=== PATIENT | male | born 1980 | race African-American/Black ===

== ENCOUNTER 2020-02-25 09:34 | Emergency (ER) | payer BC ==
[~2020-02-25] VITALS: Ht 182.9 cm; Wt 99.3 kg
[2020-02-25 09:40] VITALS: Ht 182.9 cm; Wt 99.3 kg
[2020-02-25 11:26] VITALS: BP 108/79
== END 2020-02-25 12:21 | disposition home or self-care (01) ==
LOC: ED 09:34
DX: N49.2 Inflammatory disorders of scrotum (principal); F17.210 Nicotine dependence, cigarettes, uncomplicated; Z88.1 Allergy status to other antibiotic agents
CPT/HCPCS: J1885; J2001

== ENCOUNTER 2020-03-12 07:17 | Emergency (ER) | payer BC ==
[~2020-03-12] VITALS: Ht 182.9 cm; Wt 98.9 kg
[2020-03-12 07:28] VITALS: Ht 182.9 cm; Wt 98.9 kg
[2020-03-12 14:49] VITALS: BP 120/90
== END 2020-03-12 14:49 | disposition home or self-care (01) ==
LOC: ED 07:17
DX: L02.214 Cutaneous abscess of groin (principal); Z88.2 Allergy status to sulfonamides; Z88.1 Allergy status to other antibiotic agents
CPT/HCPCS: J2001

== ENCOUNTER 2020-04-18 18:01 | Emergency (ER) | payer BC ==
[~2020-04-18] VITALS: Ht 185.4 cm; Wt 98.4 kg
[2020-04-18 18:22] VITALS: BP 126/77; Ht 185.4 cm; Wt 98.4 kg
[2020-04-18 19:23] LABS: BASOPHIL % 1.7 % (0.2-1.5); PLATELET COUNT 189 x10^3mcL (152-348)
[2020-04-18 19:25] LABS: RED CELL DISTRIBUTION WIDTH 14.7 % (12.1-16.2)
[2020-04-18 19:34] LABS: CALCIUM 8.5 mg/dL (8.5-10.1); CARBON DIOXIDE 25.7 mmol/L (21-32); CHLORIDE SERUM 106 mmol/L (98-107); CREATININE SERUM 1.3 mg/dL (0.7-1.3); GFR1 > 60 mL/min; GLUCOSE SERUM 101 mg/dL (74-106); POTASSIUM SERUM 4.1 mmol/L (3.5-5.1); SODIUM SERUM 140 mmol/L (136-145)
[2020-04-18 19:45] LABS: ALBUMIN 3.7 g/dL (3.4-5.0); ALKALINE PHOSPHATASE 88 U/L (46-116); ALT/SGPT 29 U/L (16-63); AST/SGOT 17 U/L (15-37); LIPASE 121 IU/L (73-393); TOTAL PROTEIN, SERUM 7.5 g/dL (6.4-8.2)
== END 2020-04-18 21:30 | disposition home or self-care (01) ==
LOC: ED 18:01
PROVIDERS: Emergency Medicine
DX: R10.13 Epigastric pain (principal); Z88.6 Allergy status to analgesic agent; Z88.1 Allergy status to other antibiotic agents